=== PATIENT | female | born 1980 | race Caucasian/White ===

== ENCOUNTER 2018-04-15 01:28 | Inpatient (IN) | payer BC ==
[2018-04-15] MEDS ORDERED: IBUPROFEN 400 MG TAB PO PRN (01:59)
[2018-04-15] MEDS ORDERED: NALOXONE 0.4 MG/ML 1 ML VIAL IV PRN (01:59)
--- NOTE | 2018-04-15 01:59 | ED ---
Skin/Abscess/FB HPI - General Chief complaint: Skin/Abscess/Foreign Body Stated complaint: Infection/Thumb injury Time Seen by Provider: 04/15/18 01:38 Source: patient, RN notes reviewed Mode of arrival: ambulatory Limitations: no limitations - History of Present Illness Initial comments: This is a a 37-year-old female who presents to the emergency department as a transfer from [facility]. She states that 3 weeks ago she injured her right thumb. She states that she caught her right thumb nail on a trailer and ripped the tip of it off. She states that approximately one week ago she developed a painful bump by her fingernail. She presented to her primary care physician who prescribed Bactrim and updated her tetanus. Patient states that she has been taking Bactrim for the past 3 days. She states that she presented to [facility] emergency department this evening because the pain was severe and she thought that her thumb may be infected. She was given 1 dose of vancomycin and normal saline while in their emergency department. They recommended transfer to our emergency department for admission and further evaluation by a hand specialist. Patient states that the pain has been so bad that it wakes her out of her sleep. She denies any fevers or chills, chest pain or shortness of breath, abdominal pain, nausea or vomiting. - Related Data Allergies Allergy/AdvReac Type Severity Reaction Status Date / Time No Known Allergies Allergy Verified 04/15/18 01:36 Review of Systems ROS Statement: Those systems with pertinent positive or pertinent negative responses have been documented in the HPI. ROS Other: All systems not noted in ROS Statement are negative. Past Medical History Past Medical History: GERD/Reflux, Hypertension History of Any Multi-Drug Resistant Organisms: None Reported Past Surgical History: Tonsillectomy Past Psychological History: No Psychological Hx Reported Smoking Status: Never smoker Past Alcohol Use History: Occasional Past Drug Use History: None Reported General Exam - General Exam Comments Initial Comments: General: Awake and alert, well-developed; in no apparent distress. HEENT: Head atraumatic, normocephalic. Pupils are equal, round and reactive to light. Extraocular movements intact. Oropharynx moist without erythema or exudate. Neck: Supple. Normal ROM. Cardiovascular: Regular rate and rhythm. No murmurs, rubs or gallops. Chest symmetrical. Respiratory: Lungs clear to auscultation bilaterally. No wheezes, rales or rhonchi. Normal respiratory effort with no use of accessory muscles. Musculoskeletal: Normal range of motion of the right thumb. There is erythematous, granulation tissue formation just distal to the lateral aspect of the right fingernail. This area is tender on palpation. No active drainage. The tip of the finger is mildly erythematous and warm to the touch. Sensation is intact. Radial pulses are 2+ equal and palpable bilaterally. Skin: [place], warm and dry. Neurological: Alert and oriented x3. CN II-XII grossly intact. Speech is fluent and answers are appropriate. No focal neuro deficits. Psychiatric: Normal mood and affect. No overt signs of depression or anxiety noted. Limitations: no limitations Course Vital Signs 04/15/18 01:31 Temperature 97.8 F Pulse Rate 83 Respiratory 18 Rate Blood Pressure 148/96 O2 Sat by Pulse 100 Oximetry Medical Decision Making - Medical Decision Making 37-year-old female who presents to the emergency department as a transfer from [facility]. Patient sustained an injury to her right thumb 3 weeks ago. She now has granulation tissue formation, tenderness and swelling to the distal aspect of her right thumb. She has been taking Bactrim at home but states that it is worsening. Patient did receive 1 dose of vancomycin in the emergency department at [facility]. They recommended transfer to our emergency department for admission and evaluation by a hand specialist. Patient will be admitted to the hospital with diagnosis of right thumb infection. She will be admitted to Dr. Saenz. Vancomycin will be continued. Patient is in agreement and voices understanding. All questions answered. Disposition Clinical Impression: Finger infection Disposition: ADMITTED IP TO THIS HOSP Condition: Good Referrals: Ramiro Gaona DO [Primary Care Provider] - 1-2 days Time of Disposition: 01:59
[2018-04-15] MEDS ORDERED: VANCOMYCIN IV PER PHARMACY 1 EACH MISC MISCELLANE PRN (02:01)
[2018-04-15] MEDS: SODIUM CHLORIDE 0.9% 1,000 ML IV SCH ×2 (02:23→12:22)
[2018-04-15] MEDS ORDERED: VANCOMYCIN 1,500 MG in SODIUM CHLORIDE 0.9% 250 ML IVPB ONE ×2 (02:30→09:00)
[2018-04-15 04:35] VITALS: BMI 34.2
[2018-04-15 09:09] LABS: Basophils % (A) 0 %; Eosinophils # (A) 0.2 k/uL (0-0.7); Eosinophils % (A) 3 %; HCT 37.8 % (34.0-46.0); HGB 12.3 gm/dL (11.4-16.0); Lymphocytes # (A) 1.9 k/uL (1.0-4.8); Lymphocytes % (A) 22 %; MCH 31.3 pg (25.0-35.0); MCHC 32.6 g/dL (31.0-37.0); MCV 95.8 fL (80.0-100.0); Mean Platelet Volume 7.4; Monocytes # (A) 0.4 k/uL (0-1.0); Monocytes % (A) 5 %; Neutrophils # (A) 6.1 k/uL (1.3-7.7); Neutrophils % (A) 68 %; Platelet Count 280 k/uL (150-450); RBC 3.94 m/uL (3.80-5.40); RDW 13.2 % (11.5-15.5)
[2018-04-15 09:40] LABS: Anion Gap 11 mmol/L; Blood Urea Nitrogen 12 mg/dL (7-17); Calcium 8.4 mg/dL (8.4-10.2); Carbon Dioxide 23 mmol/L (22-30); Chloride 106 mmol/L (98-107); Glucose 103 mg/dL (74-99); Potassium 4.5 mmol/L (3.5-5.1); Sodium 140 mmol/L (137-145)
--- NOTE | 2018-04-15 12:28 | P.HPIM ---
History of Present Illness H&P Date: 04/15/18 Chief Complaint: Right Thumb Infection Ms. Cast is a 37-year-old female with no significant past medical history who presents to the emergency department as a transfer from [place] for right thumb infection. Patient states that she had an injury to her right thumb and ripped the tip of the nail off. She was doing okay until last 2 weeks when she noticed swelling and pain of the right thumb for the past 1 week. So she went to her PCP who started her on Bactrim that she took but did not give her much relief so she went to [place]. There she was given a dose of vancomycin and transferred to our facility to be evaluated by a hand specialist. Patient had received 1 more dose of vancomycin here and she states that for the past couple of hours the swelling has improved a lot and so is her pain. Patient does not have any past medical issues and she does not take any medications on a regular basis. She denies having any chest pain, cough, difficulty in breathing, palpitations. No abdominal pain nausea vomiting or diarrhea. No dysuria or hematuria. Review of Systems REVIEW OF SYSTEMS: PSYCH: No anxiety or depression NEURO:No c/o weakness of the extremties, No facial droop, No speech abnormalities. VASCULAR: no edema HEMATOLOGIC: No history of easy bleeding and bruising . No recent infections . RESPIRATORY: No cough, No SOB, No chest discomfort. IMMUNE: No infections INTEGUMENT: no rashes OPHTHALMOLOGIC: No blurry vision and no eye discharge : No dysuria or hematuria CARDIAC: No chest pain , shortness of breath , paroxysmal nocturnal dyspnea MUSCULOSKELETAL : As per HPI GI: No abdominal pain, Nausea or vomiting. No constipation or diarrhea. Past Medical History Past Medical History: GERD/Reflux, Hypertension History of Any Multi-Drug Resistant Organisms: None Reported Past Surgical History: Tonsillectomy Past Anesthesia/Blood Transfusion Reactions: No Reported Reaction Past Psychological History: No Psychological Hx Reported Smoking Status: Never smoker Past Alcohol Use History: Occasional Past Drug Use History: None Reported - Past Family History Mother Family Medical History: No Reported History Father Family Medical History: Cancer, Diabetes Mellitus Additional Family Medical History / Comment(s): prostate cancer Medications and Allergies Home Medications Medication Instructions Recorded Confirmed Type No Known Home Medications [No 04/15/18 04/15/18 History Known Home Medications] Allergies Allergy/AdvReac Type Severity Reaction Status Date / Time No Known Allergies Allergy Verified 04/15/18 10:05 Physical Exam Vitals: Vital Signs Temp Pulse Pulse Resp BP BP Pulse Ox 04/15/18 07:00 98.1 F 76 20 136/81 95 04/15/18 04:45 97.5 F L 71 20 135/91 99 04/15/18 01:31 97.8 F 83 18 148/96 100 Intake and Output 04/14/18 04/15/18 04/15/18 22:59 06:59 14:59 Intake Total 100 450 Balance 100 450 Intake: Intake, IV Titration 250 Amount Vancomycin 1,500 mg In 250 Sodium Chloride 0.9% 250 ml @ 125 mls/hr IVPB ONCE ONE Rx#:[id number] Oral 100 200 Other: # Voids 1 Weight 96.388 kg GENERAL EXAM GEN. APPEARANCE: alert, in no apparent distress HEAD EXAM: atraumatic, normocephalic, normal inspection EYE EXAM: normal appearance, PERRL, EOMI. Absent: scleral icterus, conjunctival injection, periorbital swelling ENT EXAM: normal exam, mucous membranes moist NECK EXAM: normal inspection. Absent: tenderness, meningismus, full ROM, lymphadenopathy RESPIRATORY EXAM: normal lung sounds bilaterally. Absent: respiratory distress , wheezes, rales, rhonchi, stridor CARDIOVASCULAR EXAM: regular rate, normal rhythm, normal heart sounds. Absent : systolic murmur, diastolic murmur, rubs, gallop, clicks GI/ABDOMINAL EXAM: soft, normal bowel sounds. Absent: distended, tenderness, guarding, rebound, rigid EXTREMITIES EXAM: normal inspection, full ROM, normal capillary refill. Absent : tenderness, pedal edema, joint swelling, calf tenderness Examination of the right hand - mild erythema and swelling at the tip of the right thumb , a small scab at the tip is seen. NEUROLOGICAL EXAM: alert, oriented X3, no focal deficits PSYCHIATRIC EXAM: normal affect, normal mood SKIN EXAM: warm, dry, intact, normal color. Absent: rash Results CBC & Chem 7: 04/15/18 08:33 04/15/18 08:33 Labs: Abnormal Lab Results - Last 24 Hours (Table) 04/15/18 Range/Units 08:33 Glucose 103 H (74-99) mg/dL Thrombosis Risk Factor Assmnt - Choose All That Apply Any of the Below Risk Factors Present?: Yes Each Factor Represents 1 point: Obesity (BMI >25) Other Risk Factors: No Other congenital or acquired thrombophilia - If yes, enter type in comment: No Thrombosis Risk Factor Assessment Total Risk Factor Score: 1 Thrombosis Risk Factor Assessment Level: Low Risk Assessment and Plan Assessment: ASSESSMENT AND PLAN Right thumb infection - failed outpatient antibiotic therapy - patient has been started on IV vancomycin and orthopedic consultation has been obtained. Further recommendations to follow the clinical course of the patient.
--- NOTE | 2018-04-15 12:48 | P.CNOR ---
History of Present Illness - [facility] Consult date: 04/15/18 Consult reason: other (Right thumb injury/infection) History of present illness: This is a 37-year-old female admitted through the emergency department earlier this morning as a transfer from [facility]. The patient had an injury to the right thumb approximately 3 weeks ago when she tore half of the nail away from the nail bed bed on a trailer. She states that at the time she had a little bit of pain but was not too concerned. She had been doing fine over the past couple of weeks. Late last week she began noticing increased pain to the thumb as well as increased swelling. She was placed on Bactrim by her family physician on . She failed to improve and states that she actually worsened with the antibiotic and warm soaks. She presented to the hospital again last evening and was transferred to [facility] for further orthopedic care. She reports no fever or chills. She states that her swelling and redness has improved since her first dose of IV antibiotics last evening. Past Medical History Past Medical History: GERD/Reflux, Hypertension History of Any Multi-Drug Resistant Organisms: None Reported Past Surgical History: Tonsillectomy Past Anesthesia/Blood Transfusion Reactions: No Reported Reaction Past Psychological History: No Psychological Hx Reported Smoking Status: Never smoker Past Alcohol Use History: Occasional Past Drug Use History: None Reported - Past Family History Mother Family Medical History: No Reported History Father Family Medical History: Cancer, Diabetes Mellitus Additional Family Medical History / Comment(s): prostate cancer Medications and Allergies Home Medications Medication Instructions Recorded Confirmed Type No Known Home Medications [No 04/15/18 04/15/18 History Known Home Medications] Allergies Allergy/AdvReac Type Severity Reaction Status Date / Time No Known Allergies Allergy Verified 04/15/18 10:05 Physical Examination This is a pleasant 37-year-old female in no acute distress. She is alert and oriented 3. Exam of the right upper extremity reveals no erythema or ecchymosis. She has slight swelling noted to the thumb. There is a raised area at the distal aspect of the thumb which appears to involve the nail bed. There is mild ecchymosis under the nail. She has slightly dulled sensation to the thumb. Capillary refill is less than 3 seconds. The remainder of her musculoskeletal exam is unremarkable. Results X-rays were taken in [place] which are reportedly negative. I am awaiting download of the films to our system. - Labs Labs: Abnormal Lab Results - Last 24 Hours (Table) 04/15/18 Range/Units 08:33 Glucose 103 H (74-99) mg/dL H & H 04/15/18 Range/Units 08:33 Hgb 12.3 (11.4-16.0) gm/dL Hct 37.8 (34.0-46.0) % Result Diagrams: 04/15/18 08:33 04/15/18 08:33 Assessment and Plan (1) Finger infection Current Visit: Yes Status: Acute Code(s): L08.9 - LOCAL INFECTION OF THE SKIN AND SUBCUTANEOUS TISSUE, UNSP SNOMED Code(s): 669082859 (2) Cellulitis of right thumb Current Visit: Yes Status: Acute Code(s): L03.011 - CELLULITIS OF RIGHT FINGER SNOMED Code(s): 642128181 Plan: The clinical findings are discussed with the patient. It is recommended that she continue on the current IV antibiotics. I recommend a K pad for moist heat to the right hand as tolerated. If she continues to improve may possibly discharge her to home tomorrow on oral antibiotics if cleared with internal medicine.
[2018-04-15] MEDS: KETOROLAC 30 MG/ML 1 ML VIAL IVP PRN (15:23)
[2018-04-15] MEDS: VANCOMYCIN 1,500 MG in SODIUM CHLORIDE 0.9% 250 ML IVPB SCH (20:18)
[2018-04-16] MEDS: SODIUM CHLORIDE 0.9% 1,000 ML IV SCH ×3 (00:16→17:28)
--- NOTE | 2018-04-16 08:11 | P.PN ---
Subjective Progress Note Date: 04/16/18 Principal diagnosis: Right thumb infection This is a 37-year-old female who we are following regarding her right thumb infection. I added moist heat yesterday. The infection has come to a head to the tip of the thumb which has now started to drain. She has no new complaints or concerns. Vital signs are stable. Objective - Vital Signs Vital signs: Vital Signs Temp 97.0 F L 04/16/18 05:52 Pulse 84 04/16/18 05:52 Resp 15 04/16/18 05:52 BP 120/66 04/16/18 05:52 Pulse Ox 97 04/16/18 05:52 Intake & Output 04/15/18 04/16/18 04/16/18 18:59 06:59 18:59 Intake Total 570 200 Balance 570 200 Intake: Intake, IV Titration 250 Amount Vancomycin 1,500 mg In 250 Sodium Chloride 0.9% 250 ml @ 125 mls/hr IVPB ONCE ONE Rx#:[id number] Oral 320 200 Other: Voiding Method Toilet # Voids 1 1 - Exam This is a pleasant 37-year-old female in no acute distress. She is alert and oriented 3. Exam of the right hand reveals a more pronounced pustule to the tip of the right thumb which appears to originate from under the nail bed. There is a small amount of drainage noted from the area. There is minimal swelling to the thumb and no erythema. She continues to have full range of motion of the thumb. Neurovascular status the upper extremity is intact. - Labs CBC & Chem 7: 04/15/18 08:33 04/15/18 08:33 Labs: Abnormal Lab Results - Last 24 Hours (Table) 04/15/18 Range/Units 08:33 Glucose 103 H (74-99) mg/dL Microbiology - Last 24 Hours (Table) 04/15/18 15:30 Gram Stain - Preliminary Finger - Right First Wound Culture - Preliminary 04/15/18 15:30 Anaerobic Culture - Preliminary Finger - Right First Assessment and Plan (1) Finger infection Current Visit: Yes Status: Acute Code(s): L08.9 - LOCAL INFECTION OF THE SKIN AND SUBCUTANEOUS TISSUE, UNSP SNOMED Code(s): 953704660 (2) Cellulitis of right thumb Current Visit: Yes Status: Acute Code(s): L03.011 - CELLULITIS OF RIGHT FINGER SNOMED Code(s): 991838462 Plan: The clinical findings are discussed with the patient. It is recommended that she continue on the current IV antibiotics. I recommended warm soaks with Hibiclens soap. I will keep her nothing by mouth after midnight tonight in case of possible debridement tomorrow.
[2018-04-16] MEDS: VANCOMYCIN 1,500 MG in SODIUM CHLORIDE 0.9% 250 ML IVPB SCH ×2 (08:40→20:48)
[2018-04-16] MEDS: KETOROLAC 30 MG/ML 1 ML VIAL IVP PRN (09:07)
[2018-04-16 14:15] VITALS: RESP 16
--- NOTE | 2018-04-16 16:01 | P.PN ---
Subjective Progress Note Date: 04/16/18 Progress note being dictated for Dr. Guerra. Interval history:Ms. Cast is a 37-year-old female with no significant past medical history who presents to the emergency department as a transfer from [place] for right thumb infection. Patient states that she had an injury to her right thumb and ripped the tip of the nail off. She was doing okay until last 2 weeks when she noticed swelling and pain of the right thumb for the past 1 week. So she went to her PCP who started her on Bactrim that she took but did not give her much relief so she went to [place]. There she was given a dose of vancomycin and transferred to our facility to be evaluated by a hand specialist. Patient had received 1 more dose of vancomycin here and she states that for the past couple of hours the swelling has improved a lot and so is her pain. Patient does not have any past medical issues and she does not take any medications on a regular basis. She denies having any chest pain, cough, difficulty in breathing, palpitations. No abdominal pain nausea vomiting or diarrhea. No dysuria or hematuria. Review of Systems REVIEW OF SYSTEMS: PSYCH: No anxiety or depression NEURO:No c/o weakness of the extremties, No facial droop, No speech abnormalities. VASCULAR: no edema HEMATOLOGIC: No history of easy bleeding and bruising . No recent infections . RESPIRATORY: No cough, No SOB, No chest discomfort. IMMUNE: No infections INTEGUMENT: no rashes OPHTHALMOLOGIC: No blurry vision and no eye discharge : No dysuria or hematuria CARDIAC: No chest pain , shortness of breath , paroxysmal nocturnal dyspnea MUSCULOSKELETAL : As per HPI GI: No abdominal pain, Nausea or vomiting. No constipation or diarrhea. 04/16/2018 beginning to drain with soaks. Reports numbness in the tip of the thumb. Afebrile, cultures in progress. Denies chest pain, palpitations or shortness of breath. Denies lightheadedness or dizziness or focal deficits. Objective - Vital Signs Vital signs: Vital Signs Temp 98.7 F 04/16/18 14:14 Pulse 82 04/16/18 14:14 Resp 16 04/16/18 14:14 BP 148/78 04/16/18 14:14 Pulse Ox 99 04/16/18 14:14 Intake & Output 04/15/18 04/16/18 04/16/18 18:59 06:59 18:59 Intake Total 570 200 Balance 570 200 Intake: Intake, IV Titration 250 Amount Vancomycin 1,500 mg In 250 Sodium Chloride 0.9% 250 ml @ 125 mls/hr IVPB ONCE ONE Rx#:[id number] Oral 320 200 Other: Voiding Method Toilet # Voids 1 1 3 # Bowel Movements 1 - Exam GEN. APPEARANCE: Sitting up in bed, alert and oriented 3, no acute distress HEAD EXAM: atraumatic, normocephalic, normal inspection EYE EXAM: normal appearance, PERRL, EOMI. Absent: scleral icterus, conjunctival injection, periorbital swelling ENT EXAM: normal exam, oral mucous membranes moist NECK EXAM: normal inspection, supple. No JVD RESPIRATORY EXAM: normal lung sounds bilaterally. Absent: respiratory distress , wheezes, rales, rhonchi, stridor CARDIOVASCULAR EXAM: regular rate, normal rhythm, normal heart sounds. Absent : systolic murmur, diastolic murmur, rubs, gallop, clicks GI/ABDOMINAL EXAM: soft, nontender, normal bowel sounds. Absent: distended, tenderness, guarding, rebound, rigid EXTREMITIES EXAM: normal inspection, full ROM, normal capillary refill. Absent : tenderness, pedal edema, joint swelling, calf tenderness Examination of the right hand - mild erythema , swelling , tenderness at the tip of the right thumb , a small scab at the tip is seen-partially draining. Full range of motion. NEUROLOGICAL EXAM: alert, oriented X3, no focal deficits Microbiology 04/15/18 15:30 Finger - Right First Gram Stain - Preliminary 04/15/18 15:30 Finger - Right First Wound Culture - Preliminary 04/15/18 15:30 Finger - Right First Anaerobic Culture - Preliminary - Labs CBC & Chem 7: 04/15/18 08:33 04/15/18 08:33 Labs: Microbiology - Last 24 Hours (Table) 04/15/18 15:30 Gram Stain - Preliminary Finger - Right First Wound Culture - Preliminary 04/15/18 15:30 Anaerobic Culture - Preliminary Finger - Right First Assessment and Plan Assessment: Right thumb infection with cellulitis - failed outpatient antibiotic therapy. Plan: Continue on current medication regime ,monitoring. Wound care,IV antibiotics, possible I&D tomorrow as per orthopedics.follow cultures closely. The impression and plan of care has been dictated as directed. : I performed a history and examination of this patient, discussed the same with the dictator. I agree with the dictator's note ,documented as a scribe. Any additional findings or plans will be noted.
[2018-04-17] MEDS: SODIUM CHLORIDE 0.9% 1,000 ML IV SCH (05:39)
[2018-04-17 06:28] VITALS: BP 123/67; PULSE 67; TEMP 97.1
[2018-04-17] MEDS ORDERED: VANCOMYCIN TROUGH DUE 1 EACH MISC MISCELLANE ONE (07:00)
[2018-04-17] MEDS ORDERED: LIDOCAINE 2% (PF) 20 MG/ML 2 ML VIAL SQ STA (07:47)
[2018-04-17] MEDS ORDERED: LIDOCAINE 1% INJ 10MG/ML (20 ML MDV) ONE (07:47)
[2018-04-17] MEDS: KETOROLAC 30 MG/ML 1 ML VIAL IVP PRN ×2 (08:35→12:29)
--- NOTE | 2018-04-17 08:39 | P.PN ---
Subjective Progress Note Date: 04/17/18 Principal diagnosis: Right thumb infection This is a 37-year-old female who we are following regarding her right thumb infection. I added moist heat on Sunday and warm soaks yesterday. She states that the warm soaks causes thumb to throb. The infection has come to a head to the tip of the thumb which has now started to drain. Vital signs are stable. Objective - Vital Signs Vital signs: Vital Signs Temp 97.1 F L 04/17/18 05:55 Pulse 67 04/17/18 05:55 Resp 16 04/17/18 05:55 BP 123/67 04/17/18 05:55 Pulse Ox 95 04/17/18 05:55 Intake & Output 04/16/18 04/17/18 04/17/18 18:59 06:59 18:59 Other: Voiding Method Toilet # Voids 3 1 # Bowel Movements 1 - Exam This is a pleasant 37-year-old female in no acute distress. She is alert and oriented 3. Exam of the right hand reveals a more pronounced pustule to the tip of the right thumb which appears to originate from under the nail bed. There is a small amount of drainage noted from the area. There is minimal swelling to the thumb and no erythema. She continues to have good motion of the thumb. She continues to have full range of motion of the thumb. Neurovascular status the upper extremity is intact. - Labs CBC & Chem 7: 04/15/18 08:33 04/15/18 08:33 Labs: Microbiology - Last 24 Hours (Table) 04/15/18 15:30 Gram Stain - Preliminary Finger - Right First Wound Culture - Preliminary Presumptive Staph aureus Assessment and Plan (1) Finger infection Current Visit: Yes Status: Acute Code(s): L08.9 - LOCAL INFECTION OF THE SKIN AND SUBCUTANEOUS TISSUE, UNSP SNOMED Code(s): 374804533 (2) Cellulitis of right thumb Current Visit: Yes Status: Acute Code(s): L03.011 - CELLULITIS OF RIGHT FINGER SNOMED Code(s): 778382990 Plan: The clinical findings are discussed with the patient. It is recommended that we perform a bedside incision and drainage of the thumb. Procedure: The right thumb is prepped with ChloraPrep and a digital block of 1% lidocaine is used for local anesthetic. Approximately 18 mL of 1% lidocaine is used. 15 blade is used to make a small incision over the distal radial aspect of the thumb adjacent to the nail bed. A small amount of purulent material was expressed. The superficial aspect of the pustule was removed from the thumb. A hemostat was used to spread the tissues and allow for further drainage. Cultures were taken. The patient tolerated the procedure well. The patient may be discharged from an orthopedic standpoint. Antibiotics per internal medicine. She is to follow-up in our office on Sunday for reevaluation. She is to continue warm soaks with antibiotic soap twice daily.
[2018-04-17] MEDS: VANCOMYCIN 1,500 MG in SODIUM CHLORIDE 0.9% 250 ML IVPB SCH (09:06)
[2018-04-17 09:25] LABS: Anion Gap 14 mmol/L; Blood Urea Nitrogen 14 mg/dL (7-17); Calcium 8.8 mg/dL (8.4-10.2); Carbon Dioxide 21 mmol/L (22-30); Chloride 107 mmol/L (98-107); Glucose 91 mg/dL (74-99); Potassium 4.5 mmol/L (3.5-5.1); Sodium 142 mmol/L (137-145)
[2018-04-17] MEDS ORDERED: VANCOMYCIN 1,500 MG in SODIUM CHLORIDE 0.9% 250 ML IVPB SCH (17:00)
--- NOTE | 2018-04-17 17:56 | P.DS ---
Providers Date of admission: 04/15/18 03:33 Expected date of discharge: 04/17/18 Attending physician: Gilberto Guerra Consults: 04/15/18 02:02 Consult Physician Urgent Consulting Provider: Zen Vazquez Consult Reason/Comments: right thumb infection Do you want consulting provider notified?: Yes [facility] Course: Final Diagnoses: Right thumb infection with cellulitis - failed outpatient antibiotic therapy. Status post I&D, cultures pending. Hospital course:Ms. Cast is a 37-year-old female with no significant past medical history who presents to the emergency department as a transfer from [place] for right thumb infection. Patient states that she had an injury to her right thumb and ripped the tip of the nail off. She was doing okay until last 2 weeks when she noticed swelling and pain of the right thumb for the past 1 week. So she went to her PCP who started her on Bactrim that she took but did not give her much relief so she went to [place]. There she was given a dose of vancomycin and transferred to our facility to be evaluated by a hand specialist. Patient had received 1 more dose of vancomycin here and she states that for the past couple of hours the swelling has improved a lot and so is her pain. Patient does not have any past medical issues and she does not take any medications on a regular basis. She denies having any chest pain, cough, difficulty in breathing, palpitations. No abdominal pain nausea vomiting or diarrhea. No dysuria or hematuria. Evaluated by orthopedic surgery. I&D performed at bedside, cultures sent, pending. Patient has been cleared by orthopedic surgery for discharge. Patient will be discharged home in a stable condition with guarded prognosis. While awaiting culture results, patient will be sent home on both Keflex and Bactrim DS (patient had only taken a few doses of Bactrim outpatient). PHYSICAL EXAM: GEN. APPEARANCE: Sitting up in bed, alert and oriented 3, no acute distress HEAD EXAM: atraumatic, normocephalic, normal inspection EYE EXAM: normal appearance, PERRL, EOMI. Absent: scleral icterus, conjunctival injection, periorbital swelling ENT EXAM: normal exam, oral mucous membranes moist NECK EXAM: normal inspection, supple. No JVD RESPIRATORY EXAM: normal lung sounds bilaterally. Absent: respiratory distress , wheezes, rales, rhonchi, stridor CARDIOVASCULAR EXAM: regular rate, normal rhythm, normal heart sounds. Absent : systolic murmur, diastolic murmur, rubs, gallop, clicks GI/ABDOMINAL EXAM: soft, nontender, normal bowel sounds. Absent: distended, tenderness, guarding, rebound, rigid EXTREMITIES EXAM: normal inspection, full ROM, normal capillary refill. Absent : tenderness, pedal edema, joint swelling, calf tenderness Examination of the right hand - minimal erythema , swelling , tenderness at the tip of the right thumb , status post I&D, dressing clean dry and intact. Full range of motion. NEUROLOGICAL EXAM: alert, oriented X3, no focal deficits The impression and plan of care has been dictated as directed. : I performed a history and examination of this patient, discussed the same with the dictator. I agree with the dictator's note ,documented as a scribe. Any additional findings or plans will be noted. I'm taken: 35 minutes Patient Condition at Discharge: Stable Plan - Discharge Summary Discharge Rx Participant: Yes New Discharge Prescriptions: New Cephalexin [Keflex] 500 mg PO Q8HR #21 cap Sulfamethox-Tmp 800-160Mg [Bactrim DS 800-160 mg] 1 tab PO Q12HR #14 tab Acetaminophen Tab [Tylenol Tab] 650 mg PO Q6H PRN #1 tablet PRN Reason: Pain Discharge Medication List Acetaminophen Tab [Tylenol Tab] 650 mg PO Q6H PRN #1 tablet 04/17/18 [Rx] Cephalexin [Keflex] 500 mg PO Q8HR #21 cap 04/17/18 [Rx] Sulfamethox-Tmp 800-160Mg [Bactrim DS 800-160 mg] 1 tab PO Q12HR #14 tab [Rx] Follow up Appointment(s)/Referral(s): Ramiro Gaona DO [Primary Care Provider] - 04/22/18 9:00 am (With Ansley BARAHONA) Devendra Weaver MD [STAFF PHYSICIAN] - 04/22/18 3:00 pm (Bring discharge paperwork with you to appointment. ) Ambulatory/Diagnostic Orders: Complete Blood Count w/diff [LAB.AMB] Time Frame: 3 Days, Location: Determined By Patient Patient Instructions/Handouts: Cellulitis (DC), Acute Wound Care (DC) Activity/Diet/Wound Care/Special Instructions: Soak right thumb twice a day for 20 minutes in warm soapy water; apply dry gauze and wrap. Elevate at rest. Alternate Tylenol and Ibuprofen every 6 hours as needed for pain. Activity as tolerated, may return to work 04/18/2018. Final culture results to both [facility] care provider and [facility] Regular diet as tolerated. Discharge Disposition: HOME SELF-CARE
== END 2018-04-17 12:50 | disposition home or self-care (01) | DRG 603 ==
LOC: EC 01:28 → 4MS4W 03:33 → MERGE 03:33 → 4MS4W 15:36
PROVIDERS: ADMIT Internal Medicine; ATTEND Internal Medicine
PROC: 0H9FXZZ Drainage of Right Hand Skin, External Approach (ICD-10-PCS; principal; 2018-04-17)
DX: L02.818 Cutaneous abscess of other sites (principal); L03.011 Cellulitis of right finger; Z83.3 Family history of diabetes mellitus
CPT/HCPCS: 80048; 80202; 85025; 87070; 87075; 87077; 87186; 87205; 99284

== ENCOUNTER → 2018-05-13 | Outpatient (CLI) | payer BC ==
[2018-05-13 15:13] LABS: Basophils # (A) 0.1 k/uL (0-0.2); Basophils % (A) 1 %; Eosinophils # (A) 0.1 k/uL (0-0.7); Eosinophils % (A) 1 %; HCT 39.6 % (34.0-46.0); Lymphocytes # (A) 2.5 k/uL (1.0-4.8); Lymphocytes % (A) 26 %; MCH 31.1 pg (25.0-35.0); MCV 94.3 fL (80.0-100.0); Mean Platelet Volume 7.3; Monocytes # (A) 0.5 k/uL (0-1.0); Monocytes % (A) 5 %; Neutrophils # (A) 6.2 k/uL (1.3-7.7); Neutrophils % (A) 66 %; Platelet Count 289 k/uL (150-450); RDW 13.2 % (11.5-15.5); WBC 9.5 k/uL (3.8-10.6)
== END | disposition home or self-care (01) ==
LOC: LABPAT 14:23
PROVIDERS: ATTEND Obstetrics & Gynecology Obstetrics
DX: Z01.812 Encounter for preprocedural laboratory examination (principal); N92.0 Excessive and frequent menstruation with regular cycle; N97.9 Female infertility, unspecified
CPT/HCPCS: 36415; 85025

== ENCOUNTER 2018-05-21 06:12 | Day surgery (SDC) | payer BC ==
[2018-05-15 11:16] VITALS: BMI 34.2
[~2018-05-21 06:12] MED LIST: ACETAMINOPHEN IV (For NPO) 1,000 MG in EMPTY BAG 1 BAG IVPB ONE; DEXAMETHASONE SOD PHOSPHATE 10 MG/ML 1 ML VIAL IV ONE; HYDROmorphone 0.5 MG/0.5 ML SYRINGE IVP PRN; LACTATED RINGERS 1,000 ML IV SCH; LIDOCAINE 1% 20 ML VIAL (10MG/ML) FOR IV START INTRADERMA PRN; METOCLOPRAMIDE 5 MG/ML 2 ML VIAL IVP PRN; MIDAZOLAM 2 MG/2 ML VIAL IV PRN; ONDANSETRON 4 MG/2 ML VIAL IVP ONE; Pre Op ABX Message 1 EACH MISC MISCELLANE ONE; fentaNYL (PF) 50 MCG/ML 2 ML AMP IV PRN
[2018-05-21] MEDS ORDERED: BUPIVACAINE (PF) 0.5% 30 ML VIAL SQ ONE (07:31)
[2018-05-21] MEDS ORDERED: LIDOCAINE 2% GEL 5 ML TUBE URETHRAL ONE (07:31)
[2018-05-21] MEDS ORDERED: fentaNYL (PF) 50 MCG/ML 2 ML AMP ONE (07:42)
[2018-05-21] MEDS ORDERED: HYDROmorphone (PF) 1 MG/ML ONE (07:42)
[2018-05-21] MEDS ORDERED: GLYCOPYRROLATE 0.2 MG/ML 2 ML VIAL ONE (07:42)
[2018-05-21] MEDS ORDERED: ROCURONIUM BROMIDE 10 MG/ML 10 ML VIAL IV ONE (07:42)
[2018-05-21] MEDS ORDERED: NEOSTIGMINE 1 MG/ML 10 ML VIAL ONE (07:42)
[2018-05-21] MEDS ORDERED: SUCCINYLCHOLINE CHLORIDE 100 MG/5 ML SYR IV ONE (07:42)
[2018-05-21] MEDS ORDERED: LIDOCAINE 1% INJ 10MG/ML (20 ML MDV) ONE (07:42)
[2018-05-21] MEDS ORDERED: MIDAZOLAM 2 MG/2 ML VIAL ONE (07:42)
[2018-05-21] MEDS ORDERED: PROPOFOL 10 MG/ML 20 ML VIAL IV ONE (07:42)
[2018-05-21] MEDS ORDERED: LACTATED RINGERS 1,000 ML IV ONE (08:20)
--- NOTE | 2018-05-21 08:43 | P.OP ---
Date of Procedure: 05/21/18 Preoperative Diagnosis: Family status complete, menorrhagia Postoperative Diagnosis: Same Procedure(s) Performed: Laparoscopic tubal ligation with Falope-Rings, hysteroscopy, dilation and curettage, endometrial ablation with NovaSure Anesthesia: SEAN Surgeon: Jody Wiley Estimated Blood Loss (ml): 5 IV fluids (ml): 500 Urine output (ml): 100 Pathology: other (Endometrial curettings) Condition: stable Disposition: PACU Indications for Procedure: Heavy menstrual bleeding, family status complete Operative Findings: Filmy adhesions noted from the left adnexa to the posterior uterine wall, normal ovaries were appreciated bilaterally Description of Procedure: Patient was seen in the preoperative area and informed consent was obtained. Risks were reviewed with the patient including but not limited to infection, bleeding, damage to bladder, bowel, uterine perforation. Patient stated understanding and informed consent was obtained. Next Patient was taken to the operating room where general anesthesia was obtained without difficulty by the anesthesia department. She was prepped and draped in normal sterile fashion in the dorsal lithotomy position. A regular catheter was then used to drain the bladder of clear yellow urine. A weighted speculum was placed in the posterior vaginal vault, the cervix is visualized grasped with a single-tooth tenaculum and an acorn uterine manipulator was advanced into the the cervix as a means to manipulate the uterus throughout the tubal ligation. Attention turned to the patient's abdomen where the umbilical fold a small incision was made through this incision the laparoscope within trocar in place placed through the skin incision and toward the abdomen. Once in the appropriate place CO2 insufflation was allowed to occur. Approximately 3 L of gas were used to obtain pneumoperitoneum. At this point the above noted findings were visualized. In the right lower quadrant 8 mm trocar and sleeve is placed through this incision and toward the pneumoperitoneum under direct visualization. At this point the right fallopian tube was grasped with a Falope ring applicator and operated according to felt cementer instructions this was repeated on the opposite side hemostasis was appreciated. All instruments were then removed from the patient's abdomen. Skin incisions were closed with 4 -0 Vicryl in a subarticular fashion Steri-Strips and sterile dressings were applied. Attention was then turned to the patient's vaginal vault a creatinine and her manipulator was removed the cervix was then dilated to 18-Senegalese and hysteroscope was placed through the cervix and toward the endometrial cavity a proliferative cavity with multiple endometrial polyps was noted. At this point is just hysteroscope was removed and a sharp curettage was performed until gritty texture was noted in all 4 quadrants limit endometrial cavity. At this point the NovaSure was opened and set to the appropriate measurements of a width of 2.5, length of 4 power 55, the cavity assessment was passed in the cycle was allowed to complete for 93 seconds. Afterwards the single-tooth tenaculum was taken off of the anterior lip of the cervix hemostasis was appreciated NovaSure had been removed without difficulty. Patient tolerated procedure well all counts were correct 2 patient was taken the recovery room awake and in stable condition.
[2018-05-21 08:46] VITALS: TEMP 96.9
[2018-05-21 08:48] VITALS: RESP 16
[2018-05-21] MEDS ORDERED: IBUPROFEN 200 MG TAB PO ONE (09:32)
[2018-05-21 09:40] VITALS: BP 126/80; PULSE 75
== END 2018-05-21 10:09 | disposition home or self-care (01) ==
LOC: OR 06:12
PROVIDERS: ATTEND Obstetrics & Gynecology Obstetrics
DX: Z30.2 Encounter for sterilization (principal); N92.0 Excessive and frequent menstruation with regular cycle; N73.6 Female pelvic peritoneal adhesions (postinfective); K21.9 Gastro-esophageal reflux disease without esophagitis; Z88.1 Allergy status to other antibiotic agents; Z87.891 Personal history of nicotine dependence
CPT/HCPCS: 81025; 88305; 58563; 58671; J2250; J1100; J2710; J2405; J2001; J3010; J1170; J0131; J0330; J2704

== ENCOUNTER → 2019-05-19 | Outpatient (CLI) | payer BC ==
--- NOTE | 2019-05-19 13:39 | MM ---
Reason for exam: screening (asymptomatic). Baseline mammogram. History: Family history of breast cancer in paternal grandmother at age 50. Physical Findings: Nurse did not find any significant physical abnormalities on exam. MG 3D Screening Mammo W/Cad Bilateral CC and MLO view(s) were taken. There are scattered fibroglandular densities. Finding: There is a 10 mm mass in the subareolar position of the right breast. These results were verbally communicated with the patient and result sheet given to the patient on 05/19/19. ASSESSMENT: Incomplete: need additional imaging evaluation, BI-RAD 0 RECOMMENDATION: Special view mammogram and ultrasound of the right breast.
--- NOTE | 2019-05-19 13:45 | MM ---
Reason for exam: additional evaluation requested from abnormal screening. History: Family history of breast cancer in paternal grandmother at age 50. Physical Findings: Breast exam preformed at baseline screening. MG 3D Work Up W/Cad RT Spot compression CC, spot compression MLO, and LM view(s) were taken of the right breast. There are scattered fibroglandular densities. Finding: There is a 10 mm mass in the subareolar position of the right breast. These results were verbally communicated with the patient and result sheet given to the patient on 05/19/19. ASSESSMENT: Incomplete: need additional imaging evaluation, BI-RAD 0 RECOMMENDATION: Ultrasound of the right breast.
--- NOTE | 2019-05-19 13:48 | USB ---
Reason for exam: additional evaluation requested from abnormal screening. History: Family history of breast cancer in paternal grandmother at age 50. US Breast Limited RT Right limited breast ultrasound including focal area of concern, retroareolar and axilla demonstrates a 1.0 x 0.6 x 1.1cm hypoechoic lesion at the posterior nipple. These results were verbally communicated with the patient and result sheet given to the patient on 05/19/19. ASSESSMENT: Suspicious, BI-RAD 4 RECOMMENDATION: Ultrasound core biopsy of the right breast. Called Dr. Wiley with mammographic findings and has scheduled an appointment for the patient for 07/03/19 at 10:[address] Long. Biopsy scheduled for 06/16/19 at 8:00. PRELIMINARY REPORT CALLED AND FAXED TO DR. LONG ON 05/19/19.
--- NOTE | 2019-05-20 10:42 | USB ---
Reason for exam: additional evaluation requested from abnormal screening. History: Family history of breast cancer in paternal grandmother at age 50. US Breast Workup Limited RT Right limited breast ultrasound including focal area of concern, retroareolar and axilla demonstrates a 1.0 x 0.6 x 1.1cm hypoechoic lesion at the posterior nipple. These results were verbally communicated with the patient and result sheet given to the patient on 05/19/19. ASSESSMENT: Suspicious, BI-RAD 4 RECOMMENDATION: Ultrasound core biopsy of the right breast. Called Dr. Wiley with mammographic findings and has scheduled an appointment for the patient for 07/03/19 at 10:[address] Long. Biopsy scheduled for 06/16/19 at 8:00. PRELIMINARY REPORT CALLED AND FAXED TO DR. LONG ON 05/19/19.
== END | disposition home or self-care (01) ==
LOC: RADMAMWWP 09:40
PROVIDERS: ATTEND Obstetrics & Gynecology Obstetrics
DX: Z12.31 Encounter for screening mammogram for malignant neoplasm of breast (principal); Z80.3 Family history of malignant neoplasm of breast; R92.8 Other abnormal and inconclusive findings on diagnostic imaging of breast; N63.41 Unspecified lump in right breast, subareolar
CPT/HCPCS: 77061; 77063; 77065; 77067

== ENCOUNTER → 2019-06-16 | Day surgery (SDC) | payer BC ==
[2019-06-16 07:22] VITALS: RESP 16; BMI 37.0
[2019-06-16 08:37] VITALS: BP 128/88; PULSE 77; TEMP 98
--- NOTE | 2019-06-16 11:10 | USB ---
EXAMINATION TYPE: US biopsy breast VAD RT, MG diagnostic mammo RT wo CAD DATE OF EXAM: 06/16/2019 CLINICAL HISTORY: Abnormal Mammo [id number]. TECHNIQUE: Ultrasound guided core biopsy of right retroareolar 11:00 breast. Previously noted 1 cm retroareolar lesion could not be reproduced and is felt to have reflected a duct. Rounded lesion targeted corresponds to mammographic abnormality. COMPARISON: NONE FINDINGS: The procedure of ultrasound guided core biopsy was explained to the patient. Benefits, alternatives, and risks were discussed. An informed consent was then obtained. The patient was placed in supine positioning for imaging and for the procedure. The overlying skin was prepped and draped in usual sterile fashion. Lidocaine buffered with bicarbonate was used as anesthetic into the skin and subcutaneous tissue up to area of concern in the right breast. A blado was made with surgical scalpel. Under ultrasound guidance, a 12-gauge vacuum assisted biopsy gun device was used to obtain 3 core samples. Following this, a biopsy clip was left in lesion. The patient tolerated the procedure well without any immediate complication. The patient was kept in the radiology department for short stay after the procedure and then discharged home in stable condition. IMPRESSION: Successful, uncomplicated ultrasound guided core biopsy of area of concern in the right breast, full pathology results to follow. 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 Recommendation Surgical consult of the right breast. ERIC
== END ==
LOC: RADUSWWP 07:10
PROVIDERS: ATTEND Surgery
DX: N60.11 Diffuse cystic mastopathy of right breast (principal); N60.81 Other benign mammary dysplasias of right breast; R92.8 Other abnormal and inconclusive findings on diagnostic imaging of breast; N60.21 Fibroadenosis of right breast; N60.91 Unspecified benign mammary dysplasia of right breast; Z88.1 Allergy status to other antibiotic agents
CPT/HCPCS: 88305; 77065; 19083; A4648; J2001

== ENCOUNTER → 2020-08-12 | Outpatient (CLI) | payer BC ==
--- NOTE | 2020-08-12 09:06 | MM ---
Reason for exam: additional evaluation requested from prior study. Last mammogram was performed 7 months ago. History: Patient has history of high-risk lesion on a previous biopsy at age 39. Family history of breast cancer in paternal grandmother at age 50. High risk US biopsy breast VAD RT of the right breast, June 16, 2019. Physical Findings: Nurse did not find any significant physical abnormalities on exam. MG 3D Diag Mammo W/Cad [facility] Bilateral CC and MLO view(s) were taken. Prior study comparison: December 29, 2019, right breast MG 3d diag mammo w/cad RT. June 16, 2019, right breast MG diagnostic mammo RT wo CAD. There are scattered fibroglandular densities. Previous mammotome biopsy in the right breast. No significant new findings when compared with previous films. These results were verbally communicated with the patient and result sheet given to the patient on 08/12/20. ASSESSMENT: Benign, BI-RAD 2 RECOMMENDATION: Routine screening mammogram of both breasts in 1 year.
== END | disposition home or self-care (01) ==
LOC: RADMAMWWP 07:38
PROVIDERS: ATTEND Obstetrics & Gynecology Obstetrics
DX: R92.8 Other abnormal and inconclusive findings on diagnostic imaging of breast (principal)
CPT/HCPCS: 77062; 77066

== ENCOUNTER → 2021-10-24 | Outpatient (CLI) | payer BC ==
--- NOTE | 2021-10-24 11:19 | MM ---
Reason for exam: screening (asymptomatic). Last mammogram was performed 1 year and 2 months ago. History: Patient has history of high-risk lesion on a previous biopsy at age 39. Family history of breast cancer in paternal grandmother at age 50. High risk US biopsy breast VAD RT of the right breast, June 16, 2019. Physical Findings: A clinical breast exam by your physician is recommended on an annual basis and results should be correlated with mammographic findings. MG 3D Screening Mammo W/Cad Bilateral CC and MLO view(s) were taken. Prior study comparison: August 12, 2020, bilateral MG 3d diag mammo w/cad [facility]. December 29, 2019, right breast MG 3d diag mammo w/cad RT. There are scattered fibroglandular densities. Previous mammotome biopsy in the right breast. There is no discrete abnormality. ASSESSMENT: Benign, BI-RAD 2 RECOMMENDATION: Routine screening mammogram of both breasts in 1 year.
== END | disposition home or self-care (01) ==
LOC: RADMAMWWP 08:57
PROVIDERS: ATTEND Obstetrics & Gynecology Obstetrics
DX: Z12.31 Encounter for screening mammogram for malignant neoplasm of breast (principal); Z80.3 Family history of malignant neoplasm of breast
CPT/HCPCS: 77063; 77067

== ENCOUNTER → 2022-10-25 | Outpatient (CLI) | payer BC ==
--- NOTE | 2022-10-25 18:27 | MM ---
Reason for Exam: Screening (asymptomatic). Last screening mammogram was performed 12 month(s) ago. Patient History: Menarche at age 14. First Full-Term at age 25. 06/16/2019, High risk Core Biopsy on the right side. Paternal grandmother had breast cancer, age 50. Last menstrual period: 10/13/2022 Risk Values: Patricia 5 year model risk: 0.8%. NCI Lifetime model risk: 11.0%. Prior Study Comparison: 12/29/2019 Right Diagnostic Mammogram, [facility]. 08/12/2020 Bilateral Diagnostic Mammogram, [facility]. 10/24/2021 Bilateral Screening Mammogram, [facility]. Tissue Density: There are scattered fibroglandular densities. Findings: Analyzed By CAD. Abdomen appears symmetrical and stable No suspicious groups of microcalcifications, spiculated or lobular masses, architectural distortion or other secondary signs of malignancy are mammographically apparent. Overall Assessment: Benign, BI-RAD 2 Management: Screening Mammogram of both breasts in 1 year. A negative mammogram report should not preclude additional follow up of suspicious palpable abnormalities. Patient should continue monthly self breast exam. A clinical breast exam by your physician is recommended on an annual basis and results should be correlated with mammographic findings. Electronically signed and approved by: Ramiro Arteaga D.O. Radiologis
== END | disposition home or self-care (01) ==
LOC: RADMAMWWP 07:37
PROVIDERS: ATTEND Obstetrics & Gynecology Obstetrics
DX: Z12.31 Encounter for screening mammogram for malignant neoplasm of breast (principal); Z80.3 Family history of malignant neoplasm of breast
CPT/HCPCS: 77063; 77067

== ENCOUNTER → 2023-12-24 | Outpatient (CLI) | payer BC ==
--- NOTE | 2023-12-25 22:14 | MM ---
Reason for Exam: Screening (asymptomatic). Last mammogram was performed 1 year(s) and 2 month(s) ago. Patient History: Menarche at age 14. First Full-Term at age 25. 06/16/2019, High risk Core Biopsy on the right side. Paternal grandmother had breast cancer, age 50. Risk Values: Patricia 5 year model risk: 0.9%. NCI Lifetime model risk: 10.9%. Prior Study Comparison: 08/12/2020 Bilateral Diagnostic Mammogram, [facility]. 10/24/2021 Bilateral Screening Mammogram, [facility]. 10/25/2022 Bilateral MG 3D screening mammo w/cad, [facility]. Tissue Density: There are scattered fibroglandular densities. Findings: Analyzed By CAD. There is no suspicious group of microcalcifications or new suspicious mass in either breast. Overall Assessment: Negative, BI-RAD 1 Management: Screening Mammogram of both breasts in 1 year. . Patient should continue monthly self-breast exams. A clinical breast exam by your physician is recommended on an annual basis. This exam should not preclude additional follow-up of suspicious palpable abnormalities. Note on Patricia scores and lifetime risk: 1. A Patricia score greater than 3% is considered moderate risk. If this is the case, consider specialist referral to assess eligibility for a risk reducing agent. 2. If overall lifetime risk for the development of breast cancer is 20% or higher, the patient may qualify for future screening with alternating mammogram and breast MRI. Electronically signed and approved by: Marianela Knott M.D. Radiologist
== END | disposition home or self-care (01) ==
LOC: RADMAMWWP 10:45
PROVIDERS: ATTEND Obstetrics & Gynecology Obstetrics
DX: Z12.31 Encounter for screening mammogram for malignant neoplasm of breast (principal); Z80.3 Family history of malignant neoplasm of breast
CPT/HCPCS: 77063; 77067

== ENCOUNTER → 2025-02-20 | Outpatient (CLI) | payer BC ==
--- NOTE | 2025-02-24 12:31 | MM ---
Reason for Exam: Screening (asymptomatic). Last mammogram was performed 1 year(s) and 2 month(s) ago. Patient History: Menarche at age 14. First Full-Term at age 25. 06/16/2019, High risk Core Biopsy on the right side. Paternal grandmother had breast cancer, age 50. Risk Values: Patricia 5 year model risk: 0.9%. NCI Lifetime model risk: 10.8%. Prior Study Comparison: 10/24/2021 Bilateral Screening Mammogram, [facility]. 10/25/2022 Bilateral MG 3D screening mammo w/cad, [facility]. 12/24/2023 Bilateral MG 3D screening mammo w/cad, [facility]. Tissue Density: There are scattered areas of fibroglandular density. Findings: Analyzed By CAD. There is no suspicious group of microcalcifications. There is a oval 6 mm density outer margin the left breast approximately 9.4 cm from the nipple.. Surgical clip in the right breast. Overall Assessment: Incomplete: need additional imaging evaluation, BI-RAD 0 Management: Special View Mammogram of the left breast. . Patient should continue monthly self-breast exams. A clinical breast exam by your physician is recommended on an annual basis. This exam should not preclude additional follow-up of suspicious palpable abnormalities. Note on Patricia scores and lifetime risk: 1. A Patricia score greater than 3% is considered moderate risk. If this is the case, consider specialist referral to assess eligibility for a risk reducing agent. 2. If overall lifetime risk for the development of breast cancer is 20% or higher, the patient may qualify for future screening with alternating mammogram and breast MRI. [facility], , 02/20/2025 7:59 AM. Electronically signed and approved by: Calixto Magallanes M.D. Radiologis
== END | disposition home or self-care (01) ==
LOC: RADMAMWWP 07:20
PROVIDERS: ATTEND Obstetrics & Gynecology Obstetrics
DX: Z12.31 Encounter for screening mammogram for malignant neoplasm of breast (principal); R92.323 Mammographic fibroglandular density, bilateral breasts; Z80.3 Family history of malignant neoplasm of breast
CPT/HCPCS: 77063; 77067

== ENCOUNTER → 2025-02-23 | Outpatient (CLI) | payer BC ==
--- NOTE | 2025-02-23 11:11 | MM ---
Reason for Exam: Additional evaluation requested from abnormal screening. Last screening mammogram was performed less than 1 month ago. Patient History: Menarche at age 14. First Full-Term at age 25. 06/16/2019, High risk Core Biopsy on the right side. Paternal grandmother had breast cancer, age 50. Risk Values: Patricia 5 year model risk: 0.9%. NCI Lifetime model risk: 10.8%. Prior Study Comparison: 10/25/2022 Bilateral MG 3D screening mammo w/cad, [facility]. 12/24/2023 Bilateral MG 3D screening mammo w/cad, [facility]. 02/20/2025 Bilateral MG 3D screening mammo w/cad, [facility]. Tissue Density: Left: There are scattered areas of fibroglandular density. Findings: Analyzed By CAD. Persistent 4 mm nodular density upper lower left breast 10 cm from the nipple. Ultrasound recommended. Overall Assessment: Incomplete: need additional imaging evaluation, BI-RAD 0 Management: Diagnostic Breast Ultrasound of the left breast. . Results were given to the patient verbally at the time of exam. Patient should continue monthly self-breast exams. A clinical breast exam by your physician is recommended on an annual basis. This exam should not preclude additional follow-up of suspicious palpable abnormalities. Note on Patricia scores and lifetime risk: 1. A Patricia score greater than 3% is considered moderate risk. If this is the case, consider specialist referral to assess eligibility for a risk reducing agent. 2. If overall lifetime risk for the development of breast cancer is 20% or higher, the patient may qualify for future screening with alternating mammogram and breast MRI. [facility], , 02/23/2025 10:54 AM. Electronically signed and approved by: Seamus Johnson M.D. Radiologis
--- NOTE | 2025-02-23 11:15 | USB ---
Reason for Exam: Additional evaluation requested from abnormal screening. Patient History: Menarche at age 14. First Full-Term at age 25. 06/16/2019, High risk Core Biopsy on the right side. Paternal grandmother had breast cancer, age 50. Risk Values: Patricia 5 year model risk: 0.9%. NCI Lifetime model risk: 10.8%. Technique: Method: Targeted. Prior Study Comparison: 10/25/2022 Bilateral MG 3D screening mammo w/cad, [facility]. 12/24/2023 Bilateral MG 3D screening mammo w/cad, [facility]. 02/20/2025 Bilateral MG 3D screening mammo w/cad, [facility]. Findings: The lower section of the breast of the left breast, the axilla of the left breast and the retroareolar of the left breast were scanned. Small simple cyst is seen at the left 4:00 position 10 cm from the nipple measuring 4 x 2 mm. No solid masses evident. Overall Assessment: Benign, BI-RAD 2 Management: Screening Mammogram of both breasts in 1 year. A clinical breast exam by your physician is recommended on an annual basis and results should be correlated with mammographic findings. This exam should not preclude additional follow-up of suspicious palpable abnormalities. Results were given to the patient verbally at the time of exam. [facility], , 02/23/2025 11:13 AM. Electronically signed and approved by: Seamus Johnson M.D. Radiologis
== END | disposition home or self-care (01) ==
LOC: RADMAMWWP 10:25
PROVIDERS: ATTEND Obstetrics & Gynecology Obstetrics
DX: R92.8 Other abnormal and inconclusive findings on diagnostic imaging of breast (principal); R92.322 Mammographic fibroglandular density, left breast; Z80.3 Family history of malignant neoplasm of breast
CPT/HCPCS: 77061; 77065